=== PATIENT | male | born 1930 | race Caucasian/White ===

== ENCOUNTER 2016-09-08 10:50 | Emergency (ER) | payer MEDICARE, OTHER ==
[~2016-09-08] VITALS: Ht 172.7 cm; Wt 88.0 kg
[~2016-09-08 10:50] MED LIST: ALLO300T PO; APIX5TAB PO; AZEL205.2 NAS; ESCI5TAB PO; HYDR50TA3 PO; LISI5TAB7 PO; NITR0.4T SL; OMEP40CA6 PO; POTA10TA31 PO; ROSU10TA PO; TERA10CA3 PO; WARF2.5T73 PO; WARF5TAB7 PO; [UNRECOGNIZED DRUG - OTHER]
[2016-09-08] MEDS ORDERED: METR1KIT TP (11:45)
[2016-09-08] MEDS ORDERED: AMLO10TA2 PO (11:46)
[2016-09-08] MEDS ORDERED: LOSA25TA5 PO (11:46)
[2016-09-08 12:03] LABS: BLOOD UREA NITROGEN 23 mg/dL (7-18)
[2016-09-08 12:46] VITALS: BP 150/71
== END 2016-09-08 12:48 | disposition home or self-care (01) ==
LOC: ED 11:28
DX: R60.9 Edema, unspecified (principal); E78.5 Hyperlipidemia, unspecified; K21.9 Gastro-esophageal reflux disease without esophagitis; I10 Essential (primary) hypertension; Z87.891 Personal history of nicotine dependence
CPT/HCPCS: 36415; 80048; 82040; 83880; 85025; 85610; 85730; 93970; 99285

== ENCOUNTER → 2017-02-27 | Outpatient (CLI) | payer MEDICARE, OTHER ==
[~2017-02-27] MED LIST changes: +AMLO10TA2 PO; +LOSA25TA5 PO; +METR1KIT TP
== END | disposition home or self-care (01) ==
LOC: CFH 08:37
PROVIDERS: ATTEND Internal Medicine
DX: N26.1 Atrophy of kidney (terminal) (principal); E78.2 Mixed hyperlipidemia; K21.9 Gastro-esophageal reflux disease without esophagitis; M19.90 Unspecified osteoarthritis, unspecified site; I10 Essential (primary) hypertension
CPT/HCPCS: 76770